=== PATIENT | female | born 1995 | race Caucasian/White ===

== ENCOUNTER 2017-12-22 21:30 | Inpatient (IN) | payer MEDICAID, OTHER ==
[~2017-12-22] VITALS: Ht 172.7 cm; Wt 73.0 kg
[~2017-12-22 21:30] MED LIST: AUGM875 PO; AURA1.4S OT
[2017-12-22] MEDS ORDERED: ACYC400T PO (21:56)
--- NOTE | 2017-12-22 23:37 | PD ---
HPI Chief Complaint ctxs Date Seen: Dec 22, 2017 Time Seen: 23:32 Travel History International Travel<30 Days: No Contact w/Intl Traveler<30Days: No Known Affected Area: No History of Present Illness HPI pt. is a 22 y/o @ 41 weeks w/ c/o cxs. pt. states thruout day contractions have increased in freq and intensity. +FM, no lof/vb. Weeks Gestation: 41 Para: 0 : 2 History Past Medical History Medical History: Denies Significant Hx Obstetric History Obstetric History , sab x 1 Past Surgical History Surgical History: No Previous Surgery Family History Family History: Negative Social History Alcohol Use: No Tobacco Use: No Substance Abuse: No Allergies-Medications (Allergen,Severity, Reaction): Coded Allergies: No Known Allergies (Verified Allergy, Unknown, 12/22/17) Home Meds Reported Medications Acyclovir (Acyclovir) 400 Mg Tab, 400 MG PO DAILY for Mgmt Viral Infection, TAB 0 Refills 12/22/17 Discontinued Scripts Antipyrine-Benzocaine (Auralgan) 1 Ml Xochitl, 1 ML OT Q4HPRN, #1 Prov:CELINA TALAVERA M.D. 09/12/11 Amoxicillin/Clavulanate K (Augmentin) 875 Mg Tab, 875 MG PO BID, #20 TAB Prov:CELINA TALAVERA M.D. 09/12/11 Review of Systems Except as stated in HPI: all other systems reviewed are Neg Physical Exam Narrative GENERAL: Well-nourished, well-developed patient. SKIN: Warm and dry. HEAD: Normocephalic and atraumatic. EYES: No scleral icterus. No injection or drainage. ENT: No nasal drainage noted. Mucous membranes pink. Airway patent. NECK: Supple, trachea midline. No JVD. CARDIOVASCULAR: Regular rate and rhythm without murmurs, gallops, or rubs. RESPIRATORY: Breath sounds equal bilaterally. No accessory muscle use. ABDOMEN/GI: Abdomen soft, non-tender, bowel sounds present, no rebound, no guarding Gravid GENITOURINARY: External Genitalia: intact and normal in appearance Dilatation: 1-2 Effacement: long Station: high Uterine Contractions:q 2-3 min FHT's: Category: 1 Reactive: 2 Variability: mod EXTREMITIES: No cyanosis or edema. BACK: Nontender without obvious deformity. No CVA tenderness. NEUROLOGICAL: Awake and alert. Motor and sensory grossly within normal limits. Five out of 5 muscle strength in all muscle groups. Normal speech. Data Data Vital Signs Reviewed: Yes [facility] Medical Record Reviewed: Yes Plan pt. not in labor. condition d/w pt. all ? answered. pt. given precautions for return. pt. to follow up as sched. Diagnosis Diagnosis: Primary Impression: False labor after 37 completed weeks of gestation Additional Impression: 41 weeks gestation of Disposition: 01 DISCHARGE HOME Jone Blount Jr., MD Dec 22, 2017 23:37
[2017-12-22] MEDS ORDERED: LACTATED RINGER'S 1000 ML INJ 1,000 ML IV PRN (23:54)
[2017-12-23] VITALS (33 sets, daily range): BP systolic 102–132; BP diastolic 55–84; PULSE 65–92; RESP 16–18; TEMP 97.8–98.1
[2017-12-23] MEDS ORDERED: MINERAL OIL 10 ML VIAL TOPICAL PRN
[2017-12-23] MEDS ORDERED: OXYTOCIN 30 UNITS-500ML PREMIX 500 ML IV ONE
[2017-12-23] MEDS ORDERED: LIDOCAINE HCL 1% 50 ML VIAL I-DERMAL PRN
[2017-12-23] MEDS ORDERED: CITRIC ACID-SODIUM CITRATE LIQ 30 ML UDC PO SCH
[2017-12-23] MEDS ORDERED: MISOPROSTOL 100 MCG TAB PO SCH
[2017-12-23] MEDS ORDERED: ONDANSETRON HCL 4 MG/2 ML VIAL IV PUSH PRN
[2017-12-23] MEDS ORDERED: LIDOCAINE HCL 1% 50 ML VIAL INFIL PRN
[2017-12-23] MEDS ORDERED: SODIUM CHLORID 0.9% 500 ML INJ 500 ML IV PRN
--- NOTE | 2017-12-23 | HHI.HP ---
History & Physical H&P HPI Chief Complaint ctxs Date Seen: Dec 22, 2017 Time Seen: 23:32 Travel History International Travel<30 Days: No Contact w/Intl Traveler<30Days: No Known Affected Area: No History of Present Illness HPI pt. is a 22 y/o @ 41 weeks w/ c/o cxs. pt. states thruout day contractions have increased in freq and intensity. +FM, no lof/vb. Weeks Gestation: 41 Para: 0 : 2 History Past Medical History Medical History: Denies Significant Hx Obstetric History Obstetric History , sab x 1 Past Surgical History Surgical History: No Previous Surgery Family History Family History: Negative Social History Alcohol Use: No Tobacco Use: No Substance Abuse: No Allergies-Medications (Allergen,Severity, Reaction): Coded Allergies: No Known Allergies (Verified Allergy, Unknown, 12/22/17) Home Meds Reported Medications Acyclovir (Acyclovir) 400 Mg Tab, 400 MG PO DAILY for Mgmt Viral Infection, TAB 0 Refills 12/22/17 Discontinued Scripts Antipyrine-Benzocaine (Auralgan) 1 Ml Xochitl, 1 ML OT Q4HPRN, #1 Prov:CELINA TALAVERA M.D. 09/12/11 Amoxicillin/Clavulanate K (Augmentin) 875 Mg Tab, 875 MG PO BID, #20 TAB Prov:CELINA TALAVERA M.D. 09/12/11 Review of Systems Except as stated in HPI: all other systems reviewed are Neg Physical Exam Narrative GENERAL: Well-nourished, well-developed patient. SKIN: Warm and dry. HEAD: Normocephalic and atraumatic. EYES: No scleral icterus. No injection or drainage. ENT: No nasal drainage noted. Mucous membranes pink. Airway patent. NECK: Supple, trachea midline. No JVD. CARDIOVASCULAR: Regular rate and rhythm without murmurs, gallops, or rubs. RESPIRATORY: Breath sounds equal bilaterally. No accessory muscle use. ABDOMEN/GI: Abdomen soft, non-tender, bowel sounds present, no rebound, no guarding Gravid GENITOURINARY: External Genitalia: intact and normal in appearance Dilatation: 1-2 Effacement: long Station: high Uterine Contractions:q 2-3 min FHT's: Category: 1 Reactive: 2 Variability: mod EXTREMITIES: No cyanosis or edema. BACK: Nontender without obvious deformity. No CVA tenderness. NEUROLOGICAL: Awake and alert. Motor and sensory grossly within normal limits. Five out of 5 muscle strength in all muscle groups. Normal speech. Data Data Vital Signs Reviewed: Yes [facility] Medical Record Reviewed: Yes Plan: pt. to be admitted 2/2 blake=4.9. pt. to have cytotec iol. fentanyl vs epidural for analgesia. fht reassuring. pt. d/w dr. salvador. [facility] - Jone Blount Jr., MD Dec 23, 2017 00:00
[2017-12-23] MEDS ORDERED: SODIUM CHLOR 0.9% 1000 ML INJ 1,000 ML IV PRN (00:14)
[2017-12-23 01:02] LABS: AUTOMATED NEUTROPHIL # 7.1 TH/MM3 (1.8-7.7); BASOPHIL % 0.4 % (0.0-2.0); EOSINOPHIL # 0.2 TH/MM3 (0-0.4); EOSINOPHIL % 2.4 % (0.0-4.0); HEMATOCRIT 33.1 % (35.0-46.0); HEMOGLOBIN 11.3 GM/DL (11.6-15.3); LYMPH % 22.1 % (9.0-44.0); LYMPHOCYTE # 2.3 TH/MM3 (1.0-4.8); MEAN CELL VOLUME 84.4 FL (80.0-100.0); MEAN CORPUSCULAR HEMOGLOBIN 28.9 PG (27.0-34.0); MEAN CORPUSCULAR HGB CONC 34.2 % (32.0-36.0); MEAN PLATELET VOLUME 7.5 FL (7.0-11.0); MONO % 6.5 % (0.0-8.0); MONOCYTE # 0.7 TH/MM3 (0-0.9); NEUT % 68.6 % (16.0-70.0); PLATELET COUNT 269 TH/MM3 (150-450); RED BLOOD COUNT 3.92 MIL/MM3 (4.00-5.30); WHITE BLOOD COUNT 10.4 TH/MM3 (4.0-11.0)
[2017-12-23 01:04] LABS: BACTERIA, URINE OCC /hpf; BILIRUBIN, URINE NEG (NEG); BLOOD, URINE NEG (NEG); GLUCOSE,URINE NEG (NEG); KETONE, URINE NEG (NEG); MUCUS URINE FEW /lpf (OCC); NITRITE,URINE NEG (NEG); PH, URINE 6.5 (5.0-8.5); SQUAMOUS EPITHELIAL CELL URINE 6 /hpf (0-5); URINE COLOR LIGHT-YELLOW (YELLW/STRAW); URINE LEUKOCYTE ESTERASE LARGE (NEG)
[2017-12-23] MEDS: LACTATED RINGER'S 1000 ML INJ 1,000 ML IV SCH ×2 (02:45→08:21)
[2017-12-23] MEDS ORDERED: MISOPROSTOL 25 MCG TAB PO SCH (04:00)
[2017-12-23] MEDS ORDERED: fentaNYL 2MCG-BUPIV 0.125% 100 ML EPIDURAL SCH (05:00)
[2017-12-23] MEDS ORDERED: DO NOT ADMINISTER ANTICOAGULANTS PRN (05:00)
[2017-12-23] MEDS ORDERED: NO SYSTEM NARCOTICS PRN (05:00)
[2017-12-23] MEDS ORDERED: fentaNYL 2MCG-BUPIV 0.125% INJ 100 ML ONE (06:05)
[2017-12-23] MEDS ORDERED: ePHEDrine/NS 25 MG/5 ML SYRINGE IV PUSH PRN (06:45)
--- NOTE | 2017-12-23 07:48 | PD.LABORPN ---
Subjective Subjective doing well Objective Vital Signs Vital Signs Date Time Temp Pulse Resp B/P (MAP) Pulse Ox O2 Delivery O2 Flow Rate FiO2 12/23/17 07:39 17 12/23/17 07:30 85 102/55 (71) 12/23/17 06:55 68 106/62 (77) 12/23/17 06:55 74 12/23/17 06:50 76 12/23/17 06:50 69 109/65 (80) 12/23/17 06:45 79 12/23/17 06:45 73 122/78 (93) 12/23/17 06:43 16 12/23/17 06:43 16 12/23/17 06:40 68 12/23/17 06:40 78 122/70 (87) 12/23/17 06:35 78 12/23/17 06:35 76 131/64 (86) 12/23/17 06:33 71 125/76 (92) 12/23/17 06:30 68 12/23/17 06:30 98.0 12/23/17 06:25 78 132/75 (94) 12/23/17 06:25 79 12/23/17 06:20 72 12/23/17 06:20 75 125/76 (92) 12/23/17 06:17 18 12/23/17 06:15 75 129/76 (93) 12/23/17 06:15 81 12/23/17 06:10 84 128/84 (99) 12/23/17 06:10 83 12/23/17 04:00 98.1 12/23/17 03:48 16 12/23/17 03:47 65 116/65 (82) 12/23/17 01:07 97.8 12/23/17 01:07 18 12/23/17 01:01 76 129/75 (93) Objective Pelvic Exam: Cervix: [-] Dilatation: 5 Effacement: 90 Station: -1 Presentation: vtx Membranes: ruptured AROM Uterine Contractions: FHT's: Category: 1 Baseline: [-] Reactive: [-] Variability: [-] Decels: [-] Weeks Gestation: 41 Medical induction of labor?: No Artificial rupture of membrane: Yes Artificial ROM date: Dec 23, 2017 Artifical ROM time: 07:36 Assessment/Plan Problem List: (1) 41 weeks gestation of ICD Codes: Z3A.41 - 41 weeks gestation of Status: Acute Brendon Ferro MD Dec 23, 2017 07:48
[2017-12-23] MEDS ORDERED: OXYTOCIN 30 UNITS-500ML PREMIX 500 ML ONE (09:34)
[2017-12-23] MEDS ORDERED: LIDOCAINE HCL 1% PF 30 ML VIAL ONE (10:30)
--- NOTE | 2017-12-23 11:12 | PD.OB.DELI ---
Weeks gestation: 41 Medical induction of labor?: No Artificial rupture of membrane: Yes Artificial ROM date: Dec 23, 2017 Artifical ROM time: 07:36 Anesthesia: Epidural Episiotomy: None Vaginal Delivery: Normal, Spontaneous Presentation: Occiput anterior Nuchal Cord: None Delayed cord clamping (45 sec): Yes Infant: Male, Single Delivery date: Dec 23, 2017 Delivery time: 10:49 One Minute : 9 Five Minute : 9 Placenta: Spontaneous delivery, Intact, 3 vessel cord Laceration: Vaginal laceration, 2 deg Repair: Chromic running Estimated blood loss: 300 Brendon Ferro MD Dec 23, 2017 11:12
[2017-12-23] MEDS ORDERED: BENZOCAINE 20% TOPICAL SPRAY 60 ML CAN TOPICAL PRN (11:15)
[2017-12-23] MEDS ORDERED: ALUMINUM/MAGNESIUM/SIMETH 30 ML CUP PO PRN (11:15)
[2017-12-23] MEDS ORDERED: WITCH HAZEL 50%/GLYCERIN 12.5% 40 PAD JAR TOPICAL PRN (11:15)
[2017-12-23] MEDS ORDERED: SODIUM CHLORIDE 0.9% FLUSH 10 ML FLUSH IV FLUSH PRN (11:15)
[2017-12-23] MEDS ORDERED: ACETAMINOPHEN 325 MG TAB PO PRN (11:15)
[2017-12-23] MEDS ORDERED: oxyCODONE/ACETAMINOPHEN 5 MG/325 MG TAB PO PRN ×2 (11:15)
[2017-12-23] MEDS ORDERED: ONDANSETRON ODT 4 MG TAB PO PRN (11:15)
[2017-12-23] MEDS ORDERED: ZOLPIDEM TARTRATE 5 MG TAB PO PRN (11:15)
[2017-12-23] MEDS ORDERED: OXYTOCIN 30 UNITS-500ML PREMIX 500 ML IV SCH (12:00)
[2017-12-23] MEDS ORDERED: SODIUM CHLORIDE 0.9% FLUSH 10 ML FLUSH IV FLUSH SCH (12:00)
[2017-12-23] MEDS: MEASLES, MUMPS, RUBELLA VACCINE 0.5 ML VIAL SQ ONE ×2 (14:46→16:00)
[2017-12-23] MEDS ORDERED: DIPHTH/TETANUS/ACEL PERTUSSIS (BOOSTER) 0.5 ML VIAL/PFS IM ONE (16:00)
[2017-12-23] MEDS: IBUPROFEN 800 MG TAB PO PRN (20:48)
[2017-12-23] MEDS: DOCUSATE SODIUM 50 MG/SENNA 8.6 MG TAB PO PRN (20:49)
[2017-12-24] MEDS: IBUPROFEN 800 MG TAB PO PRN ×3 (06:09→22:08)
[2017-12-24 08:00] VITALS: BP 123/76; PULSE 69; RESP 20; TEMP 97.9; O2SAT 99
--- NOTE | 2017-12-24 09:13 | HHI.OB ---
Subjective Post Day: 1 Remarks doing well breast feeding Objective Vitals/I&O Vital Signs Date Time Temp Pulse Resp B/P (MAP) Pulse Ox O2 Delivery O2 Flow Rate FiO2 12/24/17 08:00 97.9 20 99 12/24/17 08:00 69 123/76 (92) 12/23/17 20:00 98.1 78 18 112/70 (84) 12/23/17 13:45 98.1 80 18 116/71 (86) 12/23/17 12:45 18 12/23/17 12:30 68 118/84 (95) 12/23/17 11:10 16 12/23/17 11:07 97.9 92 124/80 (95) 12/23/17 10:15 17 12/23/17 10:00 77 117/78 (91) 12/23/17 09:45 18 12/23/17 09:30 80 114/70 (85) Objective Remarks GENERAL: Well-nourished, well-developed patient. ABDOMEN/GI: Abdomen soft, non-tender. Fundus: Firm, non-tender at umbilicus. GENITOURINARY: Light to moderate bleeding. EXTREMITIES: No cyanosis or edema, non-tender, without signs of DVT. Medications and IVs Current Medications Medications (Trade) Dose Ordered Sig/Jim Route Start Time Stop Time Status Last Admin (NS Flush) 2 ml BID IV FLUSH 12/23/17 12:00 (NS Flush) 2 ml UNSCH PRN IV FLUSH 12/23/17 11:15 (Tylenol) 650 mg Q4H PRN PO 12/23/17 11:15 (Motrin) 800 mg Q8H PRN PO 12/23/17 11:15 12/24/17 06:09 (Percocet 5-325 Mg) 1 tab Q4H PRN PO 12/23/17 11:15 (Percocet 5-325 Mg) 2 tab Q4H PRN PO 12/23/17 11:15 (Americaine 20% Top Spr) 1 spray Q4H PRN TOPICAL 12/23/17 11:15 12/23/17 14:00 (Tucks Pads) 1 applic QID PRN TOPICAL 12/23/17 11:15 12/23/17 14:00 (Sherry-Colace) 2 tab Q12H PRN PO 12/23/17 11:15 12/23/17 20:49 (Ambien) 5 mg HS PRN PO 12/23/17 11:15 (Mag-Al Plus Susp Liq) 15 ml Q8H PRN PO 12/23/17 11:15 (Zofran Odt) 4 mg Q6H PRN PO 12/23/17 11:15 Assessment/Plan Problem List: (1) 41 weeks gestation of ICD Codes: Z3A.41 - 41 weeks gestation of Status: Acute Discharge Planning doing well Brendon Ferro MD Dec 24, 2017 09:13
[2017-12-24] MEDS ORDERED: OXYC1TAB63 PO (09:14)
--- NOTE | 2017-12-24 09:15 | HHI.DCPOC ---
Discharge Care Plan Diagnosis: (1) Spontaneous vaginal delivery Report Symptoms to Your Doctor -Temperature above 100.5 degrees -Redness, of incision or excessive or foul smelling drainage -Unusual pain or calf pain -Increased vaginal bleeding -Painful or difficulty urinating -Feelings of extreme sadness or anxiety after 2 weeks Goals to Promote Your Health * To prevent worsening of your condition and complications * To maintain your health at the optimal level Directions to Meet Your Goals Take your medications as prescribed Follow your dietary instruction Follow activity as directed Ensure plenty of rest for recovery Drink fluids for hydration Keep your appointments as scheduled Take your immunizations and boosters as scheduled If your symptoms worsen call your PCP, if no PCP go to Urgent Care Center or Emergency Room Smoking is Dangerous to Your Health. Avoid second hand smoke Call the 24-hour crisis hotline for domestic abuse at Brendon Ferro MD Dec 24, 2017 09:15
[2017-12-24] MEDS: DOCUSATE SODIUM 50 MG/SENNA 8.6 MG TAB PO PRN (14:18)
[2017-12-24 20:02] VITALS: BP 118/73; PULSE 81; RESP 18; TEMP 98.7
--- NOTE | 2017-12-25 07:27 | HHI.OB ---
Subjective Post Day: 2 Remarks doing well Objective Vitals/I&O Vital Signs Date Time Temp Pulse Resp B/P (MAP) Pulse Ox O2 Delivery O2 Flow Rate FiO2 12/24/17 20:02 98.7 81 18 118/73 (88) 12/24/17 08:00 97.9 20 99 12/24/17 08:00 69 123/76 (92) Objective Remarks GENERAL: Well-nourished, well-developed patient. ABDOMEN/GI: Abdomen soft, non-tender. Fundus: Firm, non-tender at umbilicus. GENITOURINARY: Light to moderate bleeding. EXTREMITIES: No cyanosis or edema, non-tender, without signs of DVT. Medications and IVs Current Medications Medications (Trade) Dose Ordered Sig/Jim Route Start Time Stop Time Status Last Admin (NS Flush) 2 ml BID IV FLUSH 12/23/17 12:00 (NS Flush) 2 ml UNSCH PRN IV FLUSH 12/23/17 11:15 (Tylenol) 650 mg Q4H PRN PO 12/23/17 11:15 (Motrin) 800 mg Q8H PRN PO 12/23/17 11:15 12/24/17 22:08 (Percocet 5-325 Mg) 1 tab Q4H PRN PO 12/23/17 11:15 (Percocet 5-325 Mg) 2 tab Q4H PRN PO 12/23/17 11:15 (Americaine 20% Top Spr) 1 spray Q4H PRN TOPICAL 12/23/17 11:15 12/23/17 14:00 (Tucks Pads) 1 applic QID PRN TOPICAL 12/23/17 11:15 12/23/17 14:00 (Sherry-Colace) 2 tab Q12H PRN PO 12/23/17 11:15 12/24/17 14:18 (Ambien) 5 mg HS PRN PO 12/23/17 11:15 (Mag-Al Plus Susp Liq) 15 ml Q8H PRN PO 12/23/17 11:15 (Zofran Odt) 4 mg Q6H PRN PO 12/23/17 11:15 Assessment/Plan Problem List: (1) 41 weeks gestation of ICD Codes: Z3A.41 - 41 weeks gestation of Status: Acute (2) Spontaneous vaginal delivery ICD Codes: O80 - Encounter for full-term uncomplicated delivery Discharge Planning doing well Brendon Ferro MD Dec 25, 2017 07:27
--- NOTE | 2017-12-25 07:28 | HHI.DS ---
Admission Date Dec 22, 2017 at 23:55 Discharge Date: Dec 25, 2017 Admitting Diagnosis doing well Diagnosis: Delivery Date: Dec 23, 2017 : Male, Single Brief History pt. is a 22 y/o @ 41 weeks w/ c/o cxs. pt. states thruout day contractions have increased in freq and intensity. +FM, no lof/vb. Hospital Course on 12/23 ready to dc home ppd #2 Pt Condition on Discharge: Good Discharge Disposition: Discharge Home Discharge Instructions Diet Instructions: As Tolerated, No Restrictions Activities You Can Perform: Pelvic Rest Activities to Avoid: Driving for 24 hrs Follow up Referrals: [facility] - 2 Weeks @ [facility] with Brendon Ferro MD New Medications: Oxycodone HCl/Acetaminophen (Oxycodone-Acetaminophen 5-325) 5 Mg-325 Mg Tablet 2 TAB PO Q4H PRN for PAIN SCALE 6 TO 10, #20 TAB Continued Medications: Acyclovir (Acyclovir) 400 Mg Tab 400 MG PO DAILY for Mgmt Viral Infection, TAB 0 Refills Brendon Ferro MD Dec 25, 2017 07:28
[2017-12-25 08:00] VITALS: BP 109/64; PULSE 71; RESP 20; TEMP 98.3
[2017-12-25] MEDS: IBUPROFEN 800 MG TAB PO PRN (08:49)
== END 2017-12-25 13:39 | disposition home or self-care (01) | DRG 775 ==
LOC: HOBED 21:30 → H2EB 23:55 → H1EA 12-23 13:02
PROVIDERS: ADMIT Obstetrics & Gynecology; ATTEND Obstetrics & Gynecology
PROC: 10E0XZZ Delivery of Products of Conception, External Approach (ICD-10-PCS; principal; 2017-12-23)
PROC: 0KQM0ZZ Repair Perineum Muscle, Open Approach (ICD-10-PCS; 2017-12-23)
PROC: 10907ZC Drainage of Amniotic Fluid, Therapeutic from Products of Conception, Via Natural or Artificial Opening (ICD-10-PCS; 2017-12-23)
DX: O48.0 Post-term pregnancy (principal); O71.4 Obstetric high vaginal laceration alone; Z37.0 Single live birth; Z3A.41 41 weeks gestation of pregnancy
CPT/HCPCS: 59025; 76815; 80307; 81001; 85025; 86900; 86901; J2590; J3010; J7120